=== PATIENT | male | born 1940 | race Caucasian/White ===

== ENCOUNTER 2016-08-23 22:59 | Emergency (ER) | payer MEDICARE, OTHER ==
[~2016-08-23 22:59] MED LIST: ASAB PO; BENTYL20 PO; BETAPROSTATE PO; COZAAR100 MG PO; DETROL2 PO; ENDOCET1 TA3 PO; FLONASE NAS; GEMFIBROZIL; GLUCOPHAGE1000 MG PO; GLUCPH PO; IBS MED; IMOD PO; LEVAQUIN750 MG PO; LIBRAX PO; LIPITOR40 PO; LOP25 PO; LOPID6 PO; MOBIC15 MG PO; MULTIPLE VIT PO; MULTIVITAMI1 PO; NTG150 SL; OTC NASAL SPRAY; POTASSIUM GLUC PO; PRILOSEC10 MG PO; PROAIR HFA INH; RANITIDINE300 MG PO; SUPER B COMP PO; TOPXL50 PO; VICODINTAB PO; VITAMIN B-1500 MG PO; Z-PAK PO
[2016-08-23 23:37] LABS: BASOPHILS 0.2 %; BASOPHILS ABSOLUTE 0.01 10/3/uL (0.0-0.16); EOSINOPHILS ABSOLUTE 0.12 10/3/uL (0.0-0.53); ER CBC TAT 0 Hrs 05 Mins; HEMATOCRIT 41.6 % (40.0-51.0); HEMOGLOBIN 14.4 g/dL (13.6-17.8); IMMATURE GRANULOCYTES 0.3 %; IMMATURE GRANULOCYTES ABSOLUTE 0.02 10/3/uL (0.0-0.11); LYMPHOCYTES 29.2 %; LYMPHOCYTES ABSOLUTE 1.79 10/3/uL (0.67-4.30); MANUAL DIFF NO %; MEAN CORPUS HGB CONC 34.6 g/dL (32.0-36.0); MEAN CORPUSCULAR HEMOGLOB 31.7 pg (26.0-34.0); MEAN CORPUSCULAR VOLUME 91.6 fL (80-100); MEAN PLATELET VOLUME 11.1 fL (9.2-13.0); MONOCYTES 10.3 %; MONOCYTES ABSOLUTE 0.63 10/3/uL (0.21-1.20); NEUTROPHILS ABSOLUTE 3.55 10/3/uL (2.02-8.40); PLATELET COUNT 148 10/3/uL (150-400); RBC DISTRIBUTION WIDTH 13.1 % (12.0-16.0); RED CELL COUNT 4.54 10/6/uL (4.7-6.1); WHITE BLOOD CELLS 6.1 10/3/uL (4.5-10.5)
[2016-08-23 23:45] LABS: PROTIME (NOT ORD) 13.5 SEC (12.0-14.5)
[2016-08-23 23:55] LABS: BUN (BLOOD UREA NITROGEN) 17 MG/DL (6-23); CALCIUM, SERUM 8.8 MG/DL (8.5-10.4); CHEST PAIN PROFILE TAT 0 Hrs 23 Mins; CHLORIDE, SERUM 108 MMOL/L (96-112); CO2 (CARBON DIOXIDE) 28 MMOL/L (24-34); CREATININE 1.18 MG/DL (0.70-1.30); GFR AFRICAN AMERICAN 70 ML/MIN (>=60); GFR NON AFRICAN AMERICAN 60 ML/MIN (>=60); POTASSIUM, SERUM 4.3 MMOL/L (3.5-5.3); SODIUM, SERUM 141 MMOL/L (135-148); TROPONIN I 0.02 NG/ML (<0.05)
[2016-08-23 23:56] LABS: GLUCOSE, SERUM 159 MG/DL (60-99)
== END 2016-08-24 02:47 | disposition home or self-care (01) ==
LOC: ER 22:59
PROVIDERS: Specialist
DX: M79.602 Pain in left arm (principal); R07.9 Chest pain, unspecified; I10 Essential (primary) hypertension; E11.9 Type 2 diabetes mellitus without complications; I25.2 Old myocardial infarction; Z95.1 Presence of aortocoronary bypass graft; Z88.2 Allergy status to sulfonamides; Z88.8 Allergy status to other drugs, medicaments and biological substances; Z79.84 Long term (current) use of oral hypoglycemic drugs; Z79.899 Other long term (current) drug therapy; Z79.82 Long term (current) use of aspirin
CPT/HCPCS: 71010; 80048; 83735; 84484; 85025; 85610; 85730; 93005; 96374; 96375; 99285; A9270-GY; J2405